=== PATIENT | female | born 1980 | race African-American/Black ===

== ENCOUNTER 2018-08-20 10:28 | Emergency (ER) | payer SELFPAY ==
[2018-08-20] MEDS ORDERED: METOCLOPRAMIDE HCL INJ/PF 10 MG/2 ML SDV IV ONE (11:14)
[2018-08-20] MEDS ORDERED: DIPHENHYDRAMINE HCL 25 MG CAPSULE PO ONE (11:15)
[2018-08-20] MEDS ORDERED: NORMAL SALINE 1000 ML 1,000 ML IV ONE (11:15)
[2018-08-20] MEDS ORDERED: KETOROLAC TROMETHAMINE INJ/PF 30 MG/1 ML SDV IV ONE (11:15)
--- NOTE | 2018-08-20 11:18 | ER Document Report ---
ED Medical Screen (RME) - General Chief Complaint: Headache Stated Complaint: HEADACHES, DIZZY Time Seen by Provider: 08/20/18 11:08 TRAVEL OUTSIDE OF THE [place] IN LAST 30 DAYS: No - HPI Patient complains to provider of: Headache Onset: Other - 30-year-old female presents for evaluation of a throbbing left- sided headache with some associated visual disturbance occasionally, she denies any history of headaches save when she has her menses. She has been trying to utilize standard remedies at home without any improvement. She noted that 4 days prior she had an episode of low back pain with some associated shaking and chills thereafter that caused her to leave work, that is since resolved but now she has had a persistent throbbing headache which is been unremitting. - Related Data Allergies/Adverse Reactions: No Known Allergies Allergy (Unverified 06/20/12 11:50) Past Medical History - Social History Frequency of alcohol use: None - Past Medical History Cardiac Medical History: Denies: Hx Coronary Artery Disease, Hx Heart Attack, Hx Hypertension Pulmonary Medical History: Denies: Hx Asthma, Hx Bronchitis, Hx COPD, Hx Pneumonia Neurological Medical History: Denies: Hx Cerebrovascular Accident, Hx Seizures Renal/ Medical History: Denies: Hx Peritoneal Dialysis Musculoskeltal Medical History: Denies Hx Arthritis Psychiatric Medical History: Reports: Hx Depression - 4 yo son in january 2014 Past Surgical History: Reports: Hx Tubal Ligation. Denies: Hx Pacemaker - Immunizations Immunizations up to date: No Hx Diphtheria, Pertussis, Tetanus Vaccination: No Physical Exam - Vital signs Vitals: Temp Pulse Resp BP Pulse Ox 99.4 F 97 14 100/60 97 08/20/18 10:40 08/20/18 10:40 08/20/18 10:40 08/20/18 10:40 08/20/18 10:40 Course - Re-evaluation Re-evalutation: Patient undergo urinalysis as well as administration of analgesia for headache. Believe that she is likely suffering from a migraine however will require further evaluation including more thorough neuro examination. Does not have any focal neurologic deficits at this time suggestive of subarachnoid hemorrhage or CVA. 08/20/18 11:18 I have performed a rapid medical screening exam, I have evaluated the patient, I have made a determination based on this patient's medical condition for further evaluation. - Vital Signs Vital signs: Temp Pulse Resp BP Pulse Ox 99.4 F 97 14 100/60 97 08/20/18 10:40 08/20/18 10:40 08/20/18 10:40 08/20/18 10:40 08/20/18 10:40 Doctor's Discharge - Discharge Referrals: PER CALVILLO MD [Primary Care Provider] - Follow up as needed
--- NOTE | 2018-08-20 12:08 | ER Document Report ---
ED Headache - General Chief Complaint: Headache Stated Complaint: HEADACHES, DIZZY Time Seen by Provider: 08/20/18 11:08 Notes: 38-year-old female to the emergency department chief complaint of not feeling well. Patient states that she has been feeling well since Sunday. Has had a headache and some R flank pain. Questionable fever. Denies any neck stiffness. May have had some discomfort with urination. Denies any vaginal discharge. Has not had a fever today but headache has persisted. Other sick contacts at home. Has not had a flu shot yet. TRAVEL OUTSIDE OF THE [place] IN LAST 30 DAYS: No - HPI Patient complains to provider of: "Migraine" - Related Data Allergies/Adverse Reactions: No Known Allergies Allergy (Unverified 06/20/12 11:50) Past Medical History - General Information source: Patient - Social History Smoking Status: Current Every Day Smoker Cigarette use (# per day): Yes Frequency of alcohol use: None Drug Abuse: None Lives with: Family Family History: Malignancy Patient has suicidal ideation: No Patient has homicidal ideation: No - Past Medical History Cardiac Medical History: Denies: Hx Coronary Artery Disease, Hx Heart Attack, Hx Hypertension Pulmonary Medical History: Denies: Hx Asthma, Hx Bronchitis, Hx COPD, Hx Pneumonia Neurological Medical History: Denies: Hx Cerebrovascular Accident, Hx Seizures Renal/ Medical History: Denies: Hx Peritoneal Dialysis Musculoskeletal Medical History: Denies Hx Arthritis Psychiatric Medical History: Reports: Hx Depression - 4 yo son in january 2014 Past Surgical History: Reports: Hx Tubal Ligation. Denies: Hx Pacemaker - Immunizations Immunizations up to date: No Hx Diphtheria, Pertussis, Tetanus Vaccination: No Hx Pneumococcal Vaccination: 10/12/11 Review of Systems - Review of Systems Constitutional: Fever. denies: Malaise, Weakness EENT: Blurred vision. denies: Eye pain, Eye discharge, Throat pain, Difficulty swallowing, Throat swelling, Mouth pain Cardiovascular: denies: Chest pain, Palpitations, Heart racing, Syncope, Dizziness Respiratory: denies: Cough, Hurts to breathe, Short of breath, Wheezing Gastrointestinal: denies: Abdominal pain, Diarrhea, Nausea, Vomiting Genitourinary: Dysuria, Flank pain. denies: Urgency, Retention Female Genitourinary: denies: , Vaginal discharge, Vaginal bleeding Musculoskeletal: denies: Back pain, Joint pain, Joint swelling, Leg swelling Hematologic/Lymphatic: denies: Anemia, Blood clots, Easy bleeding, Easy bruising Neurological/Psychological: Headaches. denies: Confusion, Weakness, Numbness Physical Exam - Vital signs Vitals: Temp Pulse Resp BP Pulse Ox 99.4 F 97 14 100/60 97 08/20/18 10:40 08/20/18 10:40 08/20/18 10:40 08/20/18 10:40 08/20/18 10:40 Interpretation: Normal - General General appearance: Appears well, Alert - HEENT Head: Normocephalic, Atraumatic Eyes: Normal Pupils: PERRL - Respiratory Respiratory status: No respiratory distress Chest status: Nontender Breath sounds: Normal Chest palpation: Normal - Cardiovascular Rhythm: Regular Heart sounds: Normal auscultation Murmur: No - Abdominal Inspection: Normal Distension: No distension Bowel sounds: Normal Tenderness: Nontender Organomegaly: No organomegaly - Back Back: Normal, Nontender - Extremities General upper extremity: Normal inspection, Nontender, Normal color, Normal ROM , Normal temperature General lower extremity: Normal inspection, Nontender, Normal color, Normal ROM , Normal temperature, Normal weight bearing. No: Nba's sign - Neurological Neuro grossly intact: Yes Cognition: Normal Orientation: AAOx4 [place] Coma Scale Eye Opening: Spontaneous [place] Coma Scale Verbal: Oriented [place] Coma Scale Motor: Obeys Commands Gemini Coma Scale Total: 15 Speech: Normal Motor strength normal: LUE, RUE, LLE, RLE Sensory: Normal - Psychological Associated symptoms: Normal affect, Normal mood - Skin Skin Temperature: Warm Skin Moisture: Dry Skin Color: Normal Course - Re-evaluation Re-evalutation: 08/20/18 12:46 Patient received some migraine treatment from triage. States that she is feeling a little bit better after treatment. Her urinalysis results are consistent with a UTI. Influenza swab pending. We will give some IV Rocephin and continue fluid. Does not appear to be meningismus. No neck stiffness. No nuchal rigidity. 08/20/18 13:44 Laboratory 08/20/18 08/20/18 11:30 12:31 Urine Color YELLOW Urine Appearance CLOUDY Urine pH 6.0 Ur Specific [place] 1.021 Urine Protein >=500 H Urine Glucose (UA) NEGATIVE Urine Ketones 25 H Urine Blood MODERATE H Urine Nitrite NEGATIVE Urine Bilirubin NEGATIVE Urine Urobilinogen 8.0 H Ur Leukocyte Esterase LARGE H Urine RBC 1-5 Urine WBC >100 Ur Squamous Epith Cells MODERATE Urine Bacteria 3+ Urine Mucus 1+ Urine Ascorbic Acid NEGATIVE Urine HCG, Qual NEGATIVE Influenza A (Rapid) NEGATIVE Influenza B (Rapid) NEGATIVE 08/20/18 14:38 Laboratory 08/20/18 08/20/18 08/20/18 11:30 11:43 11:43 WBC 6.1 RBC 3.70 L Hgb 8.9 L Hct 27.7 L MCV 75 L MCH 24.1 L MCHC 32.1 RDW 22.0 H Plt Count 137 L Seg Neutrophils % 73.6 Lymphocytes % 15.3 Monocytes % 10.4 Eosinophils % 0.0 Basophils % 0.7 Absolute Neutrophils 4.5 Absolute Lymphocytes 0.9 Absolute Monocytes 0.6 Absolute Eosinophils 0.0 Absolute Basophils 0.0 Sodium Cancelled Potassium Cancelled Chloride Cancelled Carbon Dioxide Cancelled Anion Gap Cancelled BUN Cancelled Creatinine Cancelled Est GFR ( Amer) Cancelled Est GFR (Non-Af Amer) Cancelled Glucose Cancelled Calcium Cancelled Total Bilirubin Cancelled Direct Bilirubin Cancelled Neonat Total Bilirubin Cancelled Neonat Direct Bilirubin Cancelled Neonat Indirect Bili Cancelled AST Cancelled ALT Cancelled Alkaline Phosphatase Cancelled Total Protein Cancelled Albumin Cancelled Urine Color YELLOW Urine Appearance CLOUDY Urine pH 6.0 Ur Specific [place] 1.021 Urine Protein >=500 H Urine Glucose (UA) NEGATIVE Urine Ketones 25 H Urine Blood MODERATE H Urine Nitrite NEGATIVE Urine Bilirubin NEGATIVE Urine Urobilinogen 8.0 H Ur Leukocyte Esterase LARGE H Urine RBC 1-5 Urine WBC >100 Ur Squamous Epith Cells MODERATE Urine Bacteria 3+ Urine Mucus 1+ Urine Ascorbic Acid NEGATIVE Urine HCG, Qual NEGATIVE Influenza A (Rapid) Influenza B (Rapid) 08/20/18 12:31 WBC RBC Hgb Hct MCV MCH MCHC RDW Plt Count Seg Neutrophils % Lymphocytes % Monocytes % Eosinophils % Basophils % Absolute Neutrophils Absolute Lymphocytes Absolute Monocytes Absolute Eosinophils Absolute Basophils Sodium Potassium Chloride Carbon Dioxide Anion Gap BUN Creatinine Est GFR ( Amer) Est GFR (Non-Af Amer) Glucose Calcium Total Bilirubin Direct Bilirubin Neonat Total Bilirubin Neonat Direct Bilirubin Neonat Indirect Bili AST ALT Alkaline Phosphatase Total Protein Albumin Urine Color Urine Appearance Urine pH Ur Specific [place] Urine Protein Urine Glucose (UA) Urine Ketones Urine Blood Urine Nitrite Urine Bilirubin Urine Urobilinogen Ur Leukocyte Esterase Urine RBC Urine WBC Ur Squamous Epith Cells Urine Bacteria Urine Mucus Urine Ascorbic Acid Urine HCG, Qual Influenza A (Rapid) NEGATIVE Influenza B (Rapid) NEGATIVE - Vital Signs Vital signs: Temp Pulse Resp BP Pulse Ox 99.4 F 97 14 100/60 97 08/20/18 10:40 08/20/18 10:40 08/20/18 10:40 08/20/18 10:40 08/20/18 10:40 - Laboratory Result Diagrams: 08/20/18 11:43 08/20/18 11:43 Laboratory results interpreted by me: 08/20/18 08/20/18 11:30 11:43 RBC 3.70 L Hgb 8.9 L Hct 27.7 L MCV 75 L MCH 24.1 L RDW 22.0 H Plt Count 137 L Urine Protein >=500 H Urine Ketones 25 H Urine Blood MODERATE H Urine Urobilinogen 8.0 H Ur Leukocyte Esterase LARGE H Discharge - Discharge Clinical Impression: Pyelonephritis Condition: Good Disposition: HOME, SELF-CARE Instructions: Pyelonephritis ([facility]) Additional Instructions: It is very important that you get plenty of rest and hydration. Pyelonephritis can be very difficult to treat. Do not over work yourself. He will need to be off work for minimum of 2 days. If symptoms are 100% better you may go back to work on Sunday. It will be very important that you take your medications as instructed. In the event that you begin to have worsening pain in the right flank, vomiting, inability to keep her medications down or for other concerns and return immediately to the emergency department. We have not performed any imaging studies today. In the event the symptoms get worse she may require CT scan or an ultrasound or both. His follow-up with your regular doctor for possible repeat urinalysis in 2 weeks to make sure that the infection is cleared. Prescriptions: Ciprofloxacin HCl [Cipro 500 mg Tablet] 500 mg PO BID #20 tablet Forms: Return to Work Referrals: PER CALVILLO MD [ACTIVE STAFF] - Follow up as needed
[2018-08-20 12:34] LABS: APPEARANCE,URINE CLOUDY; COLOR,URINE YELLOW
[2018-08-20 12:35] LABS: ADD MANUAL MICROSCOPIC YES; BILIRUBIN,URINE NEGATIVE (NEGATIVE); GLUCOSE, URINE NEGATIVE (NEGATIVE); KETONES,URINE 25 mg/dL (NEGATIVE); LEUKOCYTE ESTERASE,URINE LARGE (NEGATIVE); NITRITE,URINE NEGATIVE (NEGATIVE); PROTEIN,URINE >=500 mg/dL (NEGATIVE); URINE SPECIFIC GRAVITY 1.021
[2018-08-20 12:36] LABS: BACTERIA,URINE 3+ /HPF; WBC,URINE >100 /HPF
[2018-08-20] MEDS ORDERED: CEFTRIAXONE INJ 1000 MG VIAL IV ONE (12:44)
[2018-08-20 13:08] LABS: A TYPE INFLUENZA AG NEGATIVE (NEGATIVE); B INFLUENZA AG NEGATIVE (NEGATIVE)
[2018-08-20 14:12] LABS: ABSOLUTE LYMPHOCYTES (AUTO) 0.9 10^3/uL (0.5-4.7); ABSOLUTE MONOCYTES (AUTO) 0.6 10^3/uL (0.1-1.4); ABSOLUTE NEUT (AUTO) 4.5 10^3/uL (1.7-8.2); BASOPHILS % (AUTO) 0.7 % (0-2); HEMATOCRIT 27.7 % (36.0-47.0); HEMOGLOBIN 8.9 g/dL (12.0-15.5); LYMPHOCYTES % (AUTO) 15.3 % (13-45); MEAN CORPUSCULAR HEMOGLOBIN 24.1 pg (27.0-33.4); MEAN CORPUSCULAR HGB CONC 32.1 g/dL (32.0-36.0); MEAN CORPUSCULAR VOLUME 75 fl (80-97); MONOCYTES % (AUTO) 10.4 % (3-13); PLATELET COUNT 137 10^3/uL (150-450); SEGMENTED NEUTROPHILS % (AUTO) 73.6 % (42-78); TOTAL CELLS COUNTED % (AUTO) 100 %; WHITE BLOOD COUNT 6.1 10^3/uL (4.0-10.5)
[2018-08-20 15:00] VITALS: BP 101/54
== END 2018-08-20 15:00 | disposition home or self-care (01) ==
LOC: ER 10:28
DX: N12 Tubulo-interstitial nephritis, not specified as acute or chronic (principal); R51 Headache; R10.9 Unspecified abdominal pain; F17.210 Nicotine dependence, cigarettes, uncomplicated; R50.9 Fever, unspecified; H53.8 Other visual disturbances; R30.0 Dysuria
CPT/HCPCS: 99284; 96361; 96375; 96365; 36415; 87040; 87086; 85025; 81025; 87088; 81001; 87186; 87804; J1885; J2765; J0696; J7030

== ENCOUNTER 2020-11-19 15:32 | Emergency (ER) | payer SELFPAY ==
[2020-11-19] MEDS ORDERED: OXYCODONE-ACETAMINOPHEN 5-325 MG TABLET PO ONE (15:46)
--- NOTE | 2020-11-19 15:46 | ER Document Report ---
ED Medical Screen (RME) - General Chief Complaint: Leg Pain Stated Complaint: LEG PAIN Time Seen by Provider: 11/19/20 15:44 Mode of Arrival: Ambulatory Information source: Patient Notes: 40-year-old female patient presented to the emergency department with concern for right leg pain. Patient reports pain from her knee to her groin. Reports engorged veins. Denies any history of DVTs, denies any recent travel. Exam limited due to patient wearing pants in the triage area. No obvious swelling noted. I have greeted and performed a rapid initial assessment of this patient. A comprehensive ED assessment and evaluation of the patient, analysis of test results and completion of the medical decision making process will be conducted by additional ED providers. I have specifically instructed the patient or family members with the patient to immediately return to any nursing staff should anything change in the patient's condition or with their chief complaint. TRAVEL OUTSIDE OF THE [place] IN LAST 30 DAYS: No - Related Data Allergies/Adverse Reactions: No Known Allergies Allergy (Unverified 06/20/12 11:50) Past Medical History - Past Medical History Cardiac Medical History: Denies: Hx Coronary Artery Disease, Hx Heart Attack, Hx Hypertension Pulmonary Medical History: Denies: Hx Asthma, Hx Bronchitis, Hx COPD, Hx Pneumonia Neurological Medical History: Denies: Hx Cerebrovascular Accident, Hx Seizures Renal/ Medical History: Denies: Hx Peritoneal Dialysis Musculoskeltal Medical History: Denies Hx Arthritis Psychiatric Medical History: Reports: Hx Depression - 4 yo son in january 2014 Past Surgical History: Reports: Hx Tubal Ligation. Denies: Hx Pacemaker - Immunizations Immunizations up to date: No Hx Diphtheria, Pertussis, Tetanus Vaccination: No Physical Exam - Vital signs Vitals: Temp Pulse Resp BP Pulse Ox 98.5 F 80 18 102/65 100 11/19/20 15:43 11/19/20 15:43 11/19/20 15:43 11/19/20 15:43 11/19/20 15:43 Course - Vital Signs Vital signs: Temp Pulse Resp BP Pulse Ox 98.5 F 80 18 102/65 100 11/19/20 15:43 11/19/20 15:43 11/19/20 15:43 11/19/20 15:43 11/19/20 15:43
--- NOTE | 2020-11-19 19:21 | RADIOLOGY REPORT (SQ) ---
EXAM DESCRIPTION: VENOUS UNILATERAL LOWER IMAGES COMPLETED DATE/TIME: 11/19/2020 7:13 pm REASON FOR STUDY: R leg pain COMPARISON: None. TECHNIQUE: Dynamic and static cates scale and color images acquired of the right leg venous system. S elected spectral images acquired with additional compression and augmentation maneuvers. The contrala teral common femoral vein and saphenofemoral junction were also imaged. Images stored on PACS. LIMITATIONS: None. FINDINGS: COMMON FEMORAL: Normal phasicity, compression and augmentation. No visualized echogenic ma terial on cates scale. No defects on color images. FEMORAL: Normal compression and augmentation. No visualized echogenic material on cates scale. No defe cts on color images. POPLITEAL: Normal compression, augmentation. No visualized echogenic material on cates scale. No defec ts on color images. CALF VESSELS: Normal compression, augmentation. No visualized echogenic material on cates scale. No de fects on color images. GSV and SSV: Normal compression, augmentation. No visualized echogenic material on cates scale. No def ects on color images. ANY DEEP VENOUS INSUFFICIENCY: Not evaluated. ANY EVIDENCE OF POPLITEAL CYST: No. OTHER: No other significant finding. CONTRALATERAL COMMON FEMORAL VEIN AND SAPHENOFEMORAL JUNCTION: Normal phasicity, compression and augmentation. No visualized echogenic material on cates scale. No de fects on color images. IMPRESSION: NO EVIDENCE DVT OR SVT IN THE RIGHT LEG. TECHNICAL DOCUMENTATION: JOB ID: [id number] [employer]- All Rights Reserved Reading location - IP/workstation name: [email or web address]
--- NOTE | 2020-11-19 21:10 | ER Document Report ---
ED Extremity Problem, Lower - General Chief Complaint: Leg Pain Stated Complaint: LEG PAIN Time Seen by Provider: 11/19/20 15:44 Primary Care Provider: DOMINGO BEST [Primary Care Provider] - Follow up as needed Mode of Arrival: Ambulatory Information source: Patient Notes: 40-year-old female presented to ED for complaint of pain to both legs. She states the right leg has been painful for about 3 to 4 months she states they do swell once she is up on her feet all day and she has developed spider: Of dark skin on both thighs over the last 3 to 4 months. She states she has not been to her primary care doctor in this time. She did have a venous Doppler before I examined her. Venous Doppler was completely negative. It stated there was no SVTs or DVTs. 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 She is alert oriented respirations regular nonlabored speaking in full sentences. There was no obvious swelling at the time that I did examine her Constitutional: Negative for fever. HENT: Negative for sore throat. Eyes: Negative for visual changes. Cardiovascular: Negative for chest pain. Respiratory: Negative for shortness of breath. Gastrointestinal: Negative for abdominal pain, vomiting or diarrhea. Genitourinary: Negative for dysuria. Musculoskeletal: Negative for back pain. Skin: No swelling noted to either leg but there were a spider type pattern of dark skin to both upper legs I did not notice any to the lower legs. The spider type pattern was to the front of both legs. She states it is much worse after she is worked her shift as a gas compressor operator. States that the end of the night the legs are very painful Neurological: Negative for headaches, weakness or numbness. 10 point ROS negative except as marked above and in HPI. VITAL SIGNS: Within normal limits. GENERAL: No acute distress, non-toxic appearance. HEAD: Normal with no signs of head trauma. EYES: PERRLA, EOMI, conjunctiva normal, no discharge. EARS: Hearing grossly intact. NOSE: Normal. THROAT: Oropharynx is normal. NECK: Normal range of motion, no tenderness, supple, no lymphadenopathy, No adenopathy, no JVD. CHEST: Clear breath sounds bilaterally. No wheezes, rales, or rhonchi. CARDIAC: Regular rate and rhythm. S1 and S2, without murmurs, gallops, or rubs. VASCULAR: No Edema. Peripheral pulses normal and equal in all extremities. ABDOMEN: Normal and soft with no tenderness, no masses or pulsatile masses. GASTROINTESTINAL: Bowel sounds normal GENITOURINARY: Normal, No tenderness LYMPATHTIC: No lymphadenopathy noted. MUSCULOSKELETAL: Good range of motion of all major joints. Extremities without clubbing, cyanosis or edema. NEUROLOGICAL: Alert and oriented x 3. No focal sensory or strength deficits. Speech normal. Follows commands appropriately. PSYCHIATRIC: Normal Affect, judgement and mood. SKIN: Spider pattern of dark skin to bilateral thighs. She states the right 1 is been for at least 4 months and the left one started a couple months ago. She has not been to a provider for this. TRAVEL OUTSIDE OF THE [place] IN LAST 30 DAYS: No - HPI Patient complains to provider of: Pain, Swelling, Other - Bladder pattern to the bilateral thighs Location: Leg, Thigh Occurred: Other - 3 to 4 months Onset/Duration: Sudden, Waxing and waning - When she is up walking Quality of pain: Burning, Pressure Severity: Moderate Context: Other - Swelling to both legs at times no swelling or pain when I examined her Recent injury: No Associated symptoms: Painful ambulation - After standing on her feet at work Exacerbated by: Hanging down, Movement, Walking Relieved by: Elevation, Rest - Related Data Allergies/Adverse Reactions: No Known Allergies Allergy (Verified 11/19/20 18:29) Past Medical History - General Information source: Patient - Social History Smoking Status: Current Every Day Smoker Cigarette use (# per day): Yes - 3 to 5 cigarettes a day Smoking Education Provided: Yes - 3 min Frequency of alcohol use: None Drug Abuse: None Occupation: Housekeeping Lives with: Alone - Alone with her children Family History: Malignancy Patient has suicidal ideation: No Patient has homicidal ideation: No - Past Medical History Cardiac Medical History: Reports: None Pulmonary Medical History: Reports: None EENT Medical History: Reports: None Neurological Medical History: Reports: None Endocrine Medical History: Reports: None Renal/ Medical History: Reports: None Malignancy Medical History: Reports: None GI Medical History: Reports: None Musculoskeletal Medical History: Reports None Skin Medical History: Reports None Psychiatric Medical History: Reports: Hx Depression - 4 yo son in january 2014 Traumatic Medical History: Reports: None Infectious Medical History: Reports: None Surgical Hx: Negative Past Surgical History: Reports: None, Hx Tubal Ligation - Immunizations Immunizations up to date: No Hx Diphtheria, Pertussis, Tetanus Vaccination: No Hx Pneumococcal Vaccination: 10/12/11 Physical Exam - Vital signs Vitals: Temp Pulse Resp BP Pulse Ox 98.5 F 80 18 102/65 100 11/19/20 15:43 11/19/20 15:43 11/19/20 15:43 11/19/20 15:43 11/19/20 15:43 Course - Re-evaluation Re-evalutation: 11/19/20 21:[address] Mckeon concerning the black spider type pattern to both thighs. She stated stuff more like stretchy scars there was no swelling or pain at the time of the examination. She states she should just follow-up with her primary care doctor. I did give patient the written report of the doctor. She did state there was no pain at this time. I did recommend using compression hose until she follows up with her primary care doctor when she is working. Patient verbalized understanding agreement treatment plan and she was discharged home. - Vital Signs Vital signs: Temp Pulse Resp BP Pulse Ox 98.6 F 71 15 103/61 100 11/19/20 21:22 11/19/20 21:22 11/19/20 21:22 11/19/20 21:22 11/19/20 21:22 - Laboratory Results Critical Laboratory Results Reviewed: No Critical Results - Radiology Results Critical Radiology Results Reviewed: No Critical Results Discharge - Discharge Clinical Impression: Bilateral leg pain Condition: Stable Disposition: HOME, SELF-CARE Additional Instructions: Leg Pain, Nonspecific We did not find an obvious cause for your leg pain. There's no sign of blood clot, infection, or other serious disease. Possible causes of vague leg pain include muscle or joint inflammation, disc disease in the lower back, pressure on the nerves in the back, or reduced blood flow through the arteries of the leg. Rest the leg. Pain can be eased with an antiinflammatory pain medicine such as ibuprofen. If the pain involves a small area, a heating pad might help. Call the doctor or return if the leg becomes swollen, weak, discolored, or increasingly painful, or if you develop any other significant change in your health. Venous Doppler is negative for any DVTs or SVTs. I have given you a written report of the venous Doppler. Please take this to your primary care You state your legs swell more when you are working. You might benefit from wearing compression hose. Elevate legs as often as possible. Acetaminophen Acetaminophen may be taken for pain relief or fever control. It's much safer than aspirin, offering a wider range of "safe" dosages. It is safe during . Some brand names are Tylenol, Panadol, Datril, Anacin 3, Tempra, and Liquiprin. Acetaminophen can be repeated every four hours. The following are maximum recommended dosages: WEIGHT Dose Drops Elixir Chewable(80mg) (LBS.) drprs=droppers tsp=teaspoon 6 40 mg .4 ml (1/2) 6-11 80 mg .8 ml (full) 1/2 tsp 1 tab 12-16 120 mg 1 1/2 drprs 3/4 tsp 1 1/2 tabs 17-23 160 mg 2 drprs 1 tsp 2 tabs 24-30 240 mg 3 drprs 1 1/2 tsp 3 tabs 30-35 320 mg 2 tsp 4 tabs 36-41 360 mg 2 1/4 tsp 4 1/2 tabs 42-47 400 mg 2 1/2 tsp 5 tabs 48-53 480 mg 3 tsp 6 tabs 54-59 520 mg 3 1/4 tsp 6 1/2 tabs 60-64 560 mg 3 1/2 tsp 7 tabs 65-70 600 mg 3 3/4 tsp 7 1/2 tabs 71-76 640 mg 4 tsp 8 tabs 77-82 720 mg 4 1/2 tsp 9 tabs 83-88 800 mg 5 tsp 10 tabs >89 pounds or adults 650 mg to 900 mg Acetaminophen can be repeated every four hours. Maximum daily dose not to exceed 4000 mg. These maximum recommended dosages are slightly higher than the dosages written on the product container, but these dosages are very safe and well below the toxic dosage for acetaminophen. Ibuprofen Ibuprofen is an excellent, safe drug for pain control. In addition, it has potent antiinflammatory effects which are beneficial, especially in the treatment of injuries, arthritis, or tendonitis. It's best to take ibuprofen with food. Persons with ulcer disease or allergy to aspirin should notify their physician of this before taking ibuprofen. Take the medication exactly as prescribed. Don't take additional doses unless instructed to do so by your doctor. If you develop wheezing, shortness of breath, hives, faintness, stomach pain, vomiting, or dark black stools, return for re-evaluation at once. FOLLOW-UP CARE: If you have been referred to a physician for follow-up care, call the physicians office for an appointment as you were instructed or within the next two days. If you experience worsening or a significant change in your symptoms, notify the physician immediately or return to the Emergency Department at any time for re-evaluation. Forms: Smoking Cessation Education, Return to Work Referrals: [facility] [Primary Care Provider] - Follow up as needed
[2020-11-19 21:24] VITALS: BP 103/61
== END 2020-11-19 21:23 | disposition home or self-care (01) ==
LOC: ER 15:32
DX: M79.604 Pain in right leg (principal); M79.605 Pain in left leg; F17.210 Nicotine dependence, cigarettes, uncomplicated; Z98.51 Tubal ligation status
CPT/HCPCS: 93971; 99284